=== PATIENT | female | born 1975 | race Caucasian/White ===

== ENCOUNTER → 2023-03-03 | Outpatient (CLI) | payer BC ==
[2023-03-03 15:47] VITALS: BP 114/74; PULSE 100; TEMP 98.3; BMI 62.4
--- NOTE | 2023-03-03 16:20 | P.HPBAR ---
Bariatric H&P - History & Physicial H&P Date: 03/03/23 History & Physicial: Visit/CC: new patient Patient initial contact: Initial weight: Initial weight in pounds: Height: 5 ft 4 in Initial BMI: Last weight: Current weight: 165.108 kg Current weight in pounds: 364.00 Current BMI: 62.4 [place] body weight (based on NIH guidelines): 54.431 kg Excess body weight loss: The patient is a 47 year-old F who presents for Bariatric Assessment. DATE OF SERVICE:03/03/23 REASON FOR CONSULTATION: Initial bariatric evaluation. HISTORY OF PRESENT ILLNESS: Cary Pike is a 47-year-old female who comes with lifelong morbid obesity. She has tried multiple medications for weight loss including mounjaro. Her weight was 349 pound lowest after medical supervised weight loss. Highest weight of 390 pounds. She has done medical supervised weight loss. She reports back pain. She has right hip pain. She has knee pains bilateral. She fidgets. She denies dysphagia. She denies stomach, esophageal or colon cancer. No reports of deep venous thrombosis. Her mother has a blood disorder. No moderate gastroesophageal reflux disease but she is on Ozempic. She still has her gallbladder. She denies food allergies. She is looking into the sleeve gastrectomy. At height of 5 feet 4 inches, her ideal body weight is 144 pounds. Highest weight 390 pounds, body mass index 67.1. She comes in 364 pounds. Her body mass index is 62.5. She is 220 pounds overweight. PAST MEDICAL HISTORY: 1. Morbid obesity due to excess calories 2. Body mass index of 67.1 3. Generalized anxiety disorder 4. Chronic obstructive pulmonary disease due to excess 5. Hypertensive heart disease 6. Depressive disorder 7. Obstructive sleep apnea 8. Motion sickness 9. Osteoarthritis lower back 10. Osteoarthritis right hip 11. Osteoarthritis bilateral knees PAST SURGICAL HISTORY: 1. Section HOME MEDICATIONS: Home Medications Medication Instructions Recorded Confirmed ALPRAZolam [Xanax] 0.25 mg PO BID PRN 03/03/23 03/03/23 Albuterol Inhaler [Ventolin Hfa 1 - 2 puff INHALATION Q6H PRN 03/03/23 03/03/23 Inhaler] Budesonide/Formoterol Fumarate 1 puff INHALATION BID 03/03/23 03/03/23 [Symbicort 160-4.5 Mcg Inhaler] Montelukast [Singulair] 10 mg PO HS 03/03/23 03/03/23 Valsartan/Hydrochlorothiazide 1 each PO DAILY 03/03/23 03/03/23 [Valsartan-Hctz 160-12.5 mg Tab] Venlafaxine HCl [Effexor XR] 75 mg PO HS 03/03/23 03/03/23 ALLERGIES: Allergies Allergy/AdvReac Type Severity Reaction Status Date / Time Penicillins Allergy Unknown Verified 03/03/23 15:37 Childhood SOCIAL HISTORY: Past tobacco use. FAMILY HISTORY: No family history of ulcerative colitis disease or Crohn's disease. Family history of morbid obesity. No lupus in the family. No reports of stomach or esophageal cancer. Mother with blood disorder. REVIEW OF ORGAN SYSTEMS: CONSTITUTIONAL: At height of 5 feet 4 inches, her ideal body weight is 144 pounds. Highest weight 390 pounds, body mass index 67.1. She comes in 364 pounds. Her body mass index is 62.5. She is 220 pounds overweight. HEENT: Denies any active troubles with vision or hearing. ENDOCRINE: Denies diabetes. No hypothyroidism. CARDIOVASCULAR: Denies reports of palpitations or heart attacks or chest pain. Has hypertensive heart disease. RESPIRATORY: Has daytime somnolence. Has asthma. Has chronic obstructive pulmonary disease. GASTROINTESTINAL: Denies any bright red blood per rectum. No diarrhea. No constipation. Has gastroesophageal reflux disease. GENITOURINARY: Denies bladder urgency. No recent blood in urine MUSCULOSKELETAL: Has lower back pain and joint pain. Has osteoarthritis of the knees. NEURO: No headaches. No seizure disorders. PSYCH: Has depression. No suicidal ideation. Has anxiety disorder. RHEUMATOLOGIC: No lupus. No rheumatoid arthritis. HEMATOLOGIC: Denies any abnormal bleeding or bruising. SKIN: No rash. No skin cancer. PHYSICAL EXAM: VITAL SIGNS: Height 5 foot 4 inches, weight 364 pounds. BMI 62.5 Vital Signs Temp 98.3 F 03/03/23 15:36 Pulse 100 03/03/23 15:36 Resp BP 114/74 03/03/23 15:36 Pulse Ox FiO2 GENERAL: Well-developed in no acute distress. HEENT: No scleral icterus. Extraocular movements grossly intact. Hears conversational speech. No nasal drainage. NECK: Supple without lymphadenopathy. CHEST: Nonlabored respirations with equal bilateral excursions. CARDIOVASCULAR: Regular rate and regular rhythm. Distal 2+ pulses. ABDOMEN: Obese, soft, nontender, nondistended. MUSCULOSKELETAL: No clubbing, cyanosis. NEURO: No focal or lateralizing signs. Cranial nerves 2 through 12 grossly within normal limits. PSYCH: Appropriate affect. Alert and oriented to person, place and time. SKIN: Good skin turgor. Well perfused. ASSESSMENT: 1. Morbid obesity due to excess calories 2. Body mass index of 67.1 3. Generalized anxiety disorder 4. Chronic obstructive pulmonary disease due to excess 5. Hypertensive heart disease 6. Depressive disorder 7. Obstructive sleep apnea 8. Motion sickness 9. Osteoarthritis lower back 10. Osteoarthritis right hip 11. Osteoarthritis bilateral knees PLAN: 1. Surgical options including a band, gastric bypass, sleeve gastrectomy were described in detail. 2. The [place] bariatric surgical collaborative data and outcomes calculator were described with surgical options. 3. Recommend a bariatric metabolic panel to evaluate for micro- including macronutrient deficiencies. 4. For history of daytime somnolence, recommend evaluation and treatment for sleep apnea. 5. Dietary surveillance and counseling was reviewed. Increased protein intake over 65 grams daily advised. 6. Will need cardiac risk assessment. 7. Recommend medical risk assessment. 8. Psych assessment per insurance guidelines. 9. Recommend upper endoscopy. 10. Recommend 12-lead EKG. 11. Recommend urine metabolites testing Thank you for this consultation. Past Medical History Past Medical History: Asthma, COPD, Hypertension, Sleep Apnea/CPAP/BIPAP History of Any Multi-Drug Resistant Organisms: None Reported Past Surgical History: Section Past Anesthesia/Blood Transfusion Reactions: No Reported Reaction, Motion Sickness Past Psychological History: Anxiety, Depression Smoking Status: Former smoker Past Alcohol Use History: Occasional Past Drug Use History: None Reported Surgical - Exam Vital Signs Temp Pulse BP 98.3 F 100 114/74 03/03/23 15:36 03/03/23 15:36 03/03/23 15:36 Bariatric Checklist Checklist: Plan: Checklist: EGD: 1. Hiatal hernia: 2. H. Pylori: HgbA1c: Vitamin D: Smoking: Primary care physician referral: Gianna Montenegro NP Psychiatry clearance: Cardiology clearance: Sleep study: Diet journal: VTE risk score: VTE risk level: Rehab needs at discharge:
== END ==
LOC: BARWHC3 15:16
PROVIDERS: ATTEND Surgery Plastic and Reconstructive Surgery
DX: E66.01 Morbid (severe) obesity due to excess calories (principal); F41.1 Generalized anxiety disorder; I11.9 Hypertensive heart disease without heart failure; F32.A Depression, unspecified; G47.33 Obstructive sleep apnea (adult) (pediatric); T75.3XXA Motion sickness, initial encounter; M47.816 Spondylosis without myelopathy or radiculopathy, lumbar region; J44.89 Other specified chronic obstructive pulmonary disease; M16.11 Unilateral primary osteoarthritis, right hip; M17.0 Bilateral primary osteoarthritis of knee; Z68.44 Body mass index [BMI] 60.0-69.9, adult; Z72.0 Tobacco use; Z79.899 Other long term (current) drug therapy; Z88.0 Allergy status to penicillin
CPT/HCPCS: 99212

== ENCOUNTER → 2023-03-11 | Outpatient (CLI) | payer BC ==
[2023-03-11 10:52] LABS: INR 0.9 (<1.2); Prothrombin Time 9.7 sec (10.0-12.5)
[2023-03-11 15:05] LABS: HCT 39.3 % (37.2-46.3); HGB 13.3 g/dL (12.0-15.0); MCH 30.5 pg (27.0-32.0); MCHC 33.8 g/dL (32.0-37.0); MCV 90.1 FL (80.0-97.0); Mean Platelet Volume 10.9 FL (9.5-12.2); NRBC Per 100 WBC 0 X 10*3/uL (0.00-0.01); Platelet Count 334 X 10*3/uL (140-440); RBC 4.36 X 10*6/uL (4.10-5.20); RDW 13.3 % (11.5-14.5); WBC 11.06 X 10*3/uL (4.50-10.00)
[2023-03-11 15:23] LABS: Prealbumin 18.3 mg/dL (18.0-42.0)
[2023-03-11 15:52] LABS: Chol/HDL Ratio 3.01 Ratio; Magnesium 2.3 mg/dL (1.5-2.4)
[2023-03-11 15:53] LABS: ALT 21 U/L (8-44); AST 16 U/L (13-35); Albumin/Globulin Ratio 1.38 Ratio (1.60-3.17); Alkaline Phosphatase 91 U/L (41-126); BUN/Creat Ratio 18.71 Ratio (12.00-20.00); Blood Urea Nitrogen 13.1 mg/dL (9.0-27.0); Calcium 9.6 mg/dL (8.7-10.3); Carbon Dioxide 26.7 mmol/L (21.6-31.8); Chloride 99 mmol/L (96-109); Globulin 2.9 g/dL (1.6-3.3); Glucose 101 mg/dL (70-110); Iron 87 UG/DL (50-170); LDL Cholesterol,Calculated 105.8 mg/dL (0.0-131.0); Phosphorus 3.4 mg/dL (2.4-5.1); Potassium 4.7 mmol/L (3.5-5.5); Sodium 137 mmol/L (135-145); Total Bilirubin 0.4 mg/dL (0.3-1.2); Total Iron Binding Capacity 361 UG/DL (228-460); Total Protein 6.9 g/dL (6.2-8.2)
[2023-03-11 15:54] LABS: Ferritin 54.4 ng/mL (10.0-291.0)
[2023-03-12 12:42] LABS: Zinc, Serum 73 ug/dL (60-130)
[2023-03-13 10:03] LABS: Anabasine Urine <2.0 ng/mL (<2.0)
== END | disposition home or self-care (01) ==
LOC: LABWHC1 09:39
PROVIDERS: ATTEND Surgery Plastic and Reconstructive Surgery
DX: E66.01 Morbid (severe) obesity due to excess calories (principal); E89.1 Postprocedural hypoinsulinemia; D50.8 Other iron deficiency anemias; K91.2 Postsurgical malabsorption, not elsewhere classified; E44.0 Moderate protein-calorie malnutrition; E44.1 Mild protein-calorie malnutrition; E45 Retarded development following protein-calorie malnutrition; E46 Unspecified protein-calorie malnutrition; E55.9 Vitamin D deficiency, unspecified; K74.1 Hepatic sclerosis; N19 Unspecified kidney failure; T56.894A Toxic effect of other metals, undetermined, initial encounter; K50.90 Crohn's disease, unspecified, without complications; I49.49 Other premature depolarization
CPT/HCPCS: 36415; 80053; 80061; 80307; 80323; 82306; 82525; 82607; 82728; 82746; 83036; 83540; 83550; 83735; 83970; 84100; 84134; 84255; 84425; 84443; 84590; 84630; 85027; 85610; 85730; 93005

== ENCOUNTER 2023-04-26 06:11 | Day surgery (SDC) | payer BC ==
[2023-04-22 10:30] VITALS: BMI 63.1
[~2023-04-26 06:11] MED LIST: LIDOCAINE 1% (10MG/ML) FOR IV START INTRADERMA PRN
--- NOTE | 2023-04-26 07:03 | P.GSHP ---
History of Present Illness H&P Date: 04/26/23 CHIEF COMPLAINT: GERD and colon screen HISTORY OF PRESENT ILLNESS: The patient is a 47-year-old female who presents with gastroesophageal reflux disease and need for colon screen. Upper and lower endoscopy were offered for further evaluation and management. PAST MEDICAL HISTORY: Please see list. PAST SURGICAL HISTORY: Please see list. MEDICATIONS: Please see list. ALLERGIES: Please see list. SOCIAL HISTORY: No illicit drug use FAMILY HISTORY: No reports of Crohn disease or ulcerative colitis. REVIEW OF ORGAN SYSTEMS: CONSTITUTIONAL: No reports of fevers or chills. GI: Denies any blood in stools or constipation. PHYSICAL EXAM: VITAL SIGNS: Stable GENERAL: Well-developed pleasant in no acute distress. HEENT: No scleral icterus. Extraocular movements grossly intact. Moist buccal mucosa. NECK: Supple without lymphadenopathy. CHEST: Unlabored respirations. Equal bilateral excursions. CARDIOVASCULAR: Regular rate and rhythm. Distal 2+ pulses. ABDOMEN: Soft, nondistended. MUSCULOSKELETAL: No clubbing, cyanosis, or edema. ASSESSMENT: 1. Gastroesophageal reflux disease 2. Colon screen. PLAN: 1. Recommend proceeding with an upper and lower endoscopy Past Medical History Past Medical History: Asthma, COPD, Hypertension, Sleep Apnea/CPAP/BIPAP History of Any Multi-Drug Resistant Organisms: None Reported Past Surgical History: Section Past Anesthesia/Blood Transfusion Reactions: No Reported Reaction, Motion Sickness Smoking Status: Former smoker - Past Family History Mother Family Medical History: Cancer, Deep Vein Thrombosis (DVT) Medications and Allergies Home Medications Medication Instructions Recorded Confirmed Type ALPRAZolam [Xanax] 0.25 mg PO BID PRN 03/03/23 04/26/23 History Albuterol Inhaler [Ventolin Hfa 1 - 2 puff INHALATION Q6H PRN 03/03/23 04/26/23 History Inhaler] Budesonide/Formoterol Fumarate 1 puff INHALATION BID 03/03/23 04/26/23 History [Symbicort 160-4.5 Mcg Inhaler] Montelukast [Singulair] 10 mg PO HS 03/03/23 04/26/23 History Valsartan/Hydrochlorothiazide 1 each PO DAILY 03/03/23 04/26/23 History [Valsartan-Hctz 160-12.5 mg Tab] Venlafaxine HCl [Effexor XR] 75 mg PO HS 03/03/23 04/26/23 History Fluticasone Nasal [place] [Flonase 2 spray EA NOSTRIL DAILY PRN 04/22/23 04/26/23 History Nasal [place]] Ibuprofen [Motrin] 800 mg PO Q8H PRN 04/22/23 04/26/23 History buPROPion HCL [buPROPion HCL SR] 150 mg PO BID 04/22/23 04/26/23 History Allergies Allergy/AdvReac Type Severity Reaction Status Date / Time Penicillins Allergy Unknown Verified 04/26/23 06:53 Childhood Surgical - Exam Vital Signs Temp Pulse Resp BP Pulse Ox 97.6 F 55 L 18 142/63 95 04/26/23 06:57 04/26/23 06:57 04/26/23 06:57 04/26/23 06:57 04/26/23 06:57
[2023-04-26 07:05] VITALS: TEMP 97.6
[2023-04-26] MEDS: LACTATED RINGERS 1,000 ML IV SCH (07:13)
[2023-04-26] MEDS ORDERED: PROPOFOL 10 MG/ML 20 ML VIAL IV ONE (07:14)
[2023-04-26] MEDS ORDERED: GLYCOPYRROLATE 0.2 MG/ML 2 ML VIAL ONE (07:14)
[2023-04-26] MEDS ORDERED: KETAMINE HCL IN 0.9 % NACL 50 MG/5 ML SYRINGE ONE (07:14)
[2023-04-26] MEDS ORDERED: LIDOCAINE 1% INJ 10MG/ML (20 ML MDV) ONE (07:14)
[2023-04-26] MEDS: SODIUM CHLORIDE 0.9% 1,000 ML IV ONE (07:18)
--- NOTE | 2023-04-26 07:30 | P.PCN ---
Date of Procedure: 04/26/23 Description of Procedure: PREOPERATIVE DIAGNOSIS: Gastroesophageal reflux disease. Morbid obesity. POSTOPERATIVE DIAGNOSIS: Gastroesophageal reflux disease with erosive esophagitis Esophageal ulcer Morbid obesity. Gastritis. Diaphragmatic hiatal hernia OPERATION: Esophagogastroduodenoscopy with biopsies along esophagus, antrum and duodenum SURGEON: Jeniffer Butts MD ANESTHESIA: MAC. INDICATIONS: The patient is a 47-year-old female who presents with reflux disease. Benefits and risks of the procedure were described. Informed consent was obtained. DESCRIPTION: The patient was brought into the endoscopy suite and laid in the left lateral decubitus position. An Olympus gastroscope was passed along the posterior oropharynx down to the distal esophagus where the squamocolumnar junction was encountered at 38 cm from the incisors. The stomach was entered and no bile reflux was found. Additional findings are listed below. Biopsies with cold forceps were obtained of the antrum. The first through third portion of the duodenum was examined. Retroflexion of the scope confirmed Hill grade 2 lower esophageal valve. The squamocolumnar junction demonstrated LA grade B erosive esophagitis. The stomach was desufflated. The patient tolerated the procedure well. FINDINGS: Squamocolumnar junction 38 cm from the incisors. Diaphragmatic hiatus at 40 cm. Hiatal hernia, 2 cm Hill grade 2 lower esophageal valve. LA grade B erosive esophagitis with esophageal ulcer. Biopsies obtained Biopsies obtained of the duodenum. Chronic gastritis with biopsies obtained. RECOMMENDATIONS: Upper endoscopy as needed. Omeprazole 40 mg daily
--- NOTE | 2023-04-26 07:45 | P.PCN ---
Date of Procedure: 04/26/23 Description of Procedure: PREOPERATIVE DIAGNOSIS: Colonoscopy screening. POSTOPERATIVE DIAGNOSIS: Colonoscopy screening. Diverticulosis, scattered. OPERATION: Colonoscopy to the cecum, ileocecal valve and appendiceal orifice. SURGEON: Jeniffer Butts MD. ANESTHESIA: MAC. INDICATIONS: The patient is a 47-year-old female who presents for colonoscopy screening. Benefits and risks were described and informed consent was obtained. DESCRIPTION OF PROCEDURE: The patient had undergone Suprep. The patient had been brought into the operating room and laid in the left lateral decubitus position. After adequate intravenous sedation, the rectum was examined with 2% lidocaine jelly. No external hemorrhoids were encountered. The rectal tone was within normal limits. No lesions were palpated in the rectal vault. An Olympus colonoscope was advanced until the cecum, ileocecal valve and appendiceal orifice were clearly viewed. The prep was excellent. Scattered diverticulosis was encountered. No colonic polyps were found. No evidence of focal colitis was found. Retroflexion of the scope demonstrated grade 1 internal hemorrhoids without active bleeding or inflammation. The colon was desufflated. The patient had tolerated the procedure well. Withdrawal time was over 6 minutes. FINDINGS: Aronchick preparation quality scale 1 (1-5) Internal hemorrhoids, grade 1 No external prolapsed hemorrhoids. No arteriovenous malformations. No adenomatous polyps. No focal colitis. Diverticulosis, scattered, mild RECOMMENDATIONS: Lower endoscopy in 10 years, 2033 Plan - Discharge Summary Discharge Rx Participant: No New Discharge Prescriptions: New Omeprazole [PriLOSEC] 40 mg PO DAILY #30 cap Continue Albuterol Inhaler [Ventolin Hfa Inhaler] 1 - 2 puff INHALATION Q6H PRN PRN Reason: Shortness Of Breath Montelukast [Singulair] 10 mg PO HS buPROPion HCL [buPROPion HCL SR] 150 mg PO BID Fluticasone Nasal [place] [Flonase Nasal [place]] 2 spray EA NOSTRIL DAILY PRN PRN Reason: ALLERGIES ALPRAZolam [Xanax] 0.25 mg PO BID PRN PRN Reason: Anxiety Venlafaxine HCl [Effexor XR] 75 mg PO HS Valsartan/Hydrochlorothiazide [Valsartan-Hctz 160-12.5 mg Tab] 1 each PO DAILY Budesonide/Formoterol Fumarate [Symbicort 160-4.5 Mcg Inhaler] 1 puff INHALATION BID Ibuprofen [Motrin] 800 mg PO Q8H PRN PRN Reason: Pain Discharge Medication List ALPRAZolam [Xanax] 0.25 mg PO BID PRN 03/03/23 [History] Albuterol Inhaler [Ventolin Hfa Inhaler] 1 - 2 puff INHALATION Q6H PRN 03/03/23 [History] Budesonide/Formoterol Fumarate [Symbicort 160-4.5 Mcg Inhaler] 1 puff INHALATION BID 03/03/23 [History] Montelukast [Singulair] 10 mg PO HS 03/03/23 [History] Valsartan/Hydrochlorothiazide [Valsartan-Hctz 160-12.5 mg Tab] 1 each PO DAILY 03/03/23 [History] Venlafaxine HCl [Effexor XR] 75 mg PO HS 03/03/23 [History] Fluticasone Nasal [place] [Flonase Nasal [place]] 2 spray EA NOSTRIL DAILY PRN 04/22/23 [History] Ibuprofen [Motrin] 800 mg PO Q8H PRN 04/22/23 [History] buPROPion HCL [buPROPion HCL SR] 150 mg PO BID 04/22/23 [History] Omeprazole [PriLOSEC] 40 mg PO DAILY #30 cap 04/26/23 [Rx] [facility]ment[facility]Ref[facility] [place] [place] [facility] [place] [facility] Patient Instructions/Handouts: *Surgery [facility] - (Anesthesia) Discharge Instructions Outpatient Surgery, Colonoscopy (DC), Upper Endoscopy (DC), Diverticulosis Diet (GEN), Diverticulosis (DC), Hiatal Hernia (DC) Discharge Disposition: HOME SELF-CARE
[2023-04-26 08:33] VITALS: BP 106/62; PULSE 51; RESP 18
== END 2023-04-26 08:17 | disposition home or self-care (01) ==
LOC: ORWHC2ENDO 06:11
PROVIDERS: ATTEND Surgery Plastic and Reconstructive Surgery
DX: Z12.11 Encounter for screening for malignant neoplasm of colon (principal); K22.10 Ulcer of esophagus without bleeding; K29.50 Unspecified chronic gastritis without bleeding; K57.30 Diverticulosis of large intestine without perforation or abscess without bleeding; K64.0 First degree hemorrhoids; K21.00 Gastro-esophageal reflux disease with esophagitis, without bleeding; E66.01 Morbid (severe) obesity due to excess calories; K44.9 Diaphragmatic hernia without obstruction or gangrene; J44.9 Chronic obstructive pulmonary disease, unspecified; I10 Essential (primary) hypertension; F41.9 Anxiety disorder, unspecified; G47.33 Obstructive sleep apnea (adult) (pediatric); F32.A Depression, unspecified; Z98.890 Other specified postprocedural states; Z87.891 Personal history of nicotine dependence; Z79.51 Long term (current) use of inhaled steroids; Z79.899 Other long term (current) drug therapy; Z80.9 Family history of malignant neoplasm, unspecified; Z88.0 Allergy status to penicillin; Z68.44 Body mass index [BMI] 60.0-69.9, adult
CPT/HCPCS: 45378; 81025; 88305; 43239; J2001; J2704

== ENCOUNTER → 2023-05-03 | Outpatient (CLI) | payer BC ==
[2023-05-20 11:54] VITALS: BMI 65.8
== END ==
LOC: BARWHC3 12:48
PROVIDERS: ATTEND Surgery Plastic and Reconstructive Surgery
DX: E66.01 Morbid (severe) obesity due to excess calories (principal); Z71.3 Dietary counseling and surveillance; Z68.44 Body mass index [BMI] 60.0-69.9, adult; Z88.0 Allergy status to penicillin
CPT/HCPCS: 97804; 99211

== ENCOUNTER → 2023-05-12 | Outpatient (CLI) | payer BC ==
[2023-05-12 14:51] VITALS: BP 133/82; PULSE 114; TEMP 97.2; BMI 66.0
--- NOTE | 2023-05-12 15:46 | P.BASOAP ---
Subjective Progress Note Date: 05/12/23 WEnt over consent for sleeve. 20 pound for 5% for 365 target. For weight loss. Objective - Vital Signs Vital signs: Vital Signs Temp 97.2 F L 05/12/23 14:48 Pulse 114 H 05/12/23 14:48 Resp BP 133/82 05/12/23 14:48 Pulse Ox FiO2 Intake & Output 05/11/23 05/12/23 05/12/23 18:59 06:59 18:59 Weight 174.633 kg Assessment/Plan Plan: Date: 05/12/23 Initial Weight: Initial BMI: Current Weight: 174.633 kg Current BMI: 66.0 Type of Surgery: Total Volume in Band: Previous Volume: Volume Removed: Volume Added: Band Size:
== END ==
LOC: BARWHC3 14:24
PROVIDERS: ATTEND Surgery Plastic and Reconstructive Surgery
DX: Z53.9 Procedure and treatment not carried out, unspecified reason (principal)
CPT/HCPCS: 99211

== ENCOUNTER → 2023-06-23 | Outpatient (CLI) | payer BC ==
[2023-06-23 15:57] LABS: Basophils # (A) 0.07 X 10*3/uL (0.00-0.10); Basophils % (A) 0.7 %; Eosinophils # (A) 0.33 X 10*3/uL (0.04-0.35); Eosinophils % (A) 3.3 %; HCT 40.2 % (37.2-46.3); HGB 13.4 g/dL (12.0-15.0); Lymphocytes # (A) 2.55 X 10*3/uL (0.90-5.00); Lymphocytes % (A) 25.6 %; MCHC 33.3 g/dL (32.0-37.0); MCV 89.9 FL (80.0-97.0); Mean Platelet Volume 10.1 FL (9.5-12.2); Monocytes # (A) 0.62 X 10*3/uL (0.20-1.00); Monocytes % (A) 6.2 %; NRBC Per 100 WBC 0 X 10*3/uL (0.00-0.01); Neutrophils # (A) 6.38 X 10*3/uL (1.80-7.70); Platelet Count 387 X 10*3/uL (140-440); RBC 4.47 X 10*6/uL (4.10-5.20); RDW 13.1 % (11.5-14.5); WBC 9.97 X 10*3/uL (4.50-10.00)
[2023-06-23 16:08] LABS: ALT 35 U/L (8-44); AST 26 U/L (13-35); Albumin 4.3 g/dL (3.8-4.9); Albumin/Globulin Ratio 1.39 Ratio (1.60-3.17); Alkaline Phosphatase 76 U/L (41-126); BUN/Creat Ratio 19.88 Ratio (12.00-20.00); Blood Urea Nitrogen 15.9 mg/dL (9.0-27.0); Calcium 9.6 mg/dL (8.7-10.3); Carbon Dioxide 23.7 mmol/L (21.6-31.8); Chloride 100 mmol/L (96-109); Globulin 3.1 g/dL (1.6-3.3); Glucose 82 mg/dL (70-110); Potassium 3.8 mmol/L (3.5-5.5); Sodium 136 mmol/L (135-145); Total Bilirubin 0.3 mg/dL (0.3-1.2); Total Protein 7.4 g/dL (6.2-8.2)
== END | disposition home or self-care (01) ==
LOC: LABWHC1 12:05
PROVIDERS: ATTEND Surgery Plastic and Reconstructive Surgery
DX: Z01.812 Encounter for preprocedural laboratory examination (principal)
CPT/HCPCS: 36415; 80053; 85025; 86850; 86900; 86901

== ENCOUNTER 2023-06-28 14:13 | Inpatient (IN) | payer BC ==
--- NOTE | 2023-06-28 08:43 | P.GSHP ---
History of Present Illness H&P Date: 06/28/23 CHIEF COMPLAINT: Morbid obesity HISTORY OF PRESENT ILLNESS: Cary Pike is a 48-year-old female who comes with lifelong morbid obesity. She has tried multiple medications for weight loss including mounjaro. Her weight was 349 pound lowest after medical supervised weight loss. Highest weight of 390 pounds. She has done medical supervised weight loss. She reports back pain. She has right hip pain. She has knee pains bilateral. She fidgets. She denies dysphagia. She denies stomach, esophageal or colon cancer. No reports of deep venous thrombosis. Her mother has a blood disorder. No moderate gastroesophageal reflux disease but she is on Ozempic. She still has her gallbladder. She denies food allergies. She is looking into the sleeve gastrectomy. She has completed medical supervised weight loss. She has completed bariatric metabolic profile. At height of 5 feet 4 inches, her ideal body weight is 144 pounds. Highest weight 390 pounds, body mass index 67.1. She comes in 364 pounds. Her body mass index is 62.5. She is 220 pounds overweight. PAST MEDICAL HISTORY: 1. Morbid obesity due to excess calories 2. Body mass index of 67.1 3. Generalized anxiety disorder 4. Chronic obstructive pulmonary disease due to excess 5. Hypertensive heart disease 6. Depressive disorder 7. Obstructive sleep apnea 8. Motion sickness 9. Osteoarthritis lower back 10. Osteoarthritis right hip 11. Osteoarthritis bilateral knees PAST SURGICAL HISTORY: 1. Section HOME MEDICATIONS: ALLERGIES: SOCIAL HISTORY: Past tobacco use. FAMILY HISTORY: No family history of ulcerative colitis disease or Crohn's disease. Family history of morbid obesity. No lupus in the family. No reports of stomach or esophageal cancer. Mother with blood disorder. REVIEW OF ORGAN SYSTEMS: CONSTITUTIONAL: At height of 5 feet 4 inches, her ideal body weight is 144 pounds. Highest weight 390 pounds, body mass index 67.1. She comes in 364 pounds. Her body mass index is 62.5. She is 220 pounds overweight. HEENT: Denies any active troubles with vision or hearing. ENDOCRINE: Denies diabetes. No hypothyroidism. CARDIOVASCULAR: Denies reports of palpitations or heart attacks or chest pain. Has hypertensive heart disease. RESPIRATORY: Has daytime somnolence. Has asthma. Has chronic obstructive pulmonary disease. GASTROINTESTINAL: Denies any bright red blood per rectum. No diarrhea. No constipation. Has gastroesophageal reflux disease. GENITOURINARY: Denies bladder urgency. No recent blood in urine MUSCULOSKELETAL: Has lower back pain and joint pain. Has osteoarthritis of the knees. NEURO: No headaches. No seizure disorders. PSYCH: Has depression. No suicidal ideation. Has anxiety disorder. RHEUMATOLOGIC: No lupus. No rheumatoid arthritis. HEMATOLOGIC: Denies any abnormal bleeding or bruising. SKIN: No rash. No skin cancer. PHYSICAL EXAM: VITAL SIGNS: Height 5 foot 4 inches, weight pounds. BMI 63.5 GENERAL: Well-developed in no acute distress. HEENT: No scleral icterus. Extraocular movements grossly intact. Hears conversational speech. No nasal drainage. NECK: Supple without lymphadenopathy. CHEST: Nonlabored respirations with equal bilateral excursions. CARDIOVASCULAR: Regular rate and regular rhythm. Distal 2+ pulses. ABDOMEN: Obese, soft, nontender, nondistended. MUSCULOSKELETAL: No clubbing, cyanosis. NEURO: No focal or lateralizing signs. Cranial nerves 2 through 12 grossly within normal limits. PSYCH: Appropriate affect. Alert and oriented to person, place and time. SKIN: Good skin turgor. Well perfused. ASSESSMENT: 1. Morbid obesity due to excess calories 2. Body mass index of 67.1 3. Generalized anxiety disorder 4. Chronic obstructive pulmonary disease due to excess 5. Hypertensive heart disease 6. Depressive disorder 7. Obstructive sleep apnea 8. Motion sickness 9. Osteoarthritis lower back 10. Osteoarthritis right hip 11. Osteoarthritis bilateral knees PLAN: 1. Bariatric options between a sleeve, band and a Aline-en-Y gastric bypass were reviewed in detail. The patient elected for a sleeve gastrectomy. Robotic assisted approach described. 2. The [place] [facility] Collaborative Data was also reviewed with benefits and risks as described. 3. An 8 page second-generation bariatric consent form was reviewed in detail including potential of bleeding, infection, leaks, adequate weight loss, nutritional deficiencies which the patient demonstrated understanding of the risks. 4. A 2 week high-protein low caloric 800 kcal diet described to address hepatomegaly. 5. Preoperative labs including complete metabolic panel and CBC with type and screen recommended. 6. DVT prophylaxis per [place] bariatric surgery collaborative. 7. Antibiotic prophylaxis. 8. Inpatient hospitalization anticipated for more than 2 nights. 9. All questions and concerns were addressed with the patient. 10. The patient is at elevated risk for perioperative complications with sleep apnea and hypertensive heart disease. 11. Overall, patient has expressed understanding of bariatric care including postoperative diet and commitment of lifestyle. Patient should benefit from surgical intervention for correction of morbid obesity. 12. She is elevated risk due to pre-existing comorbid conditions 13. Anticipated 5% weight loss from 385 pounds with goal of 365 pounds on day of procedure. Past Medical History Past Medical History: Asthma, COPD, GERD/Reflux, Hypertension, Sleep Apnea/CPAP/BIPAP Additional Past Medical History / Comment(s): knees pain, does not wear cpap History of Any Multi-Drug Resistant Organisms: None Reported Past Surgical History: Section Additional Past Surgical History / Comment(s): colonoscopy. egd Past Anesthesia/Blood Transfusion Reactions: No Reported Reaction, Motion Sickness Smoking Status: Former smoker - Past Family History Mother Family Medical History: Cancer, Deep Vein Thrombosis (DVT) Father Family Medical History: Cancer Additional Family Medical History / Comment(s): DDD, Leukemia Medications and Allergies Home Medications Medication Instructions Recorded Confirmed Type ALPRAZolam [Xanax] 0.5 mg PO BID PRN 03/03/23 06/23/23 History Albuterol Inhaler [Ventolin Hfa 1 - 2 puff INHALATION Q6H PRN 03/03/23 06/23/23 History Inhaler] Montelukast [Singulair] 10 mg PO HS 03/03/23 06/23/23 History Valsartan/Hydrochlorothiazide 1 each PO DAILY 03/03/23 06/23/23 History [Valsartan-Hctz 160-12.5 mg Tab] Venlafaxine HCl [Effexor XR] 75 mg PO HS 03/03/23 06/23/23 History Fluticasone Nasal [place] [Flonase 2 spray EA NOSTRIL DAILY PRN 04/22/23 06/23/23 History Nasal [place]] Ibuprofen [Motrin] 800 mg PO Q8H PRN 04/22/23 06/23/23 History buPROPion HCL [buPROPion HCL SR] 150 mg PO BID 04/22/23 06/23/23 History Omeprazole [PriLOSEC] 40 mg PO DAILY #30 cap 04/26/23 06/23/23 Rx Fluticasone/Vilanterol [Breo 1 puff IH DAILY 06/23/23 06/23/23 History Ellipta 100-25 Mcg Inhalr] Metoprolol Succinate (ER) [Toprol 25 mg PO DAILY 06/23/23 06/23/23 History XL] Allergies Allergy/AdvReac Type Severity Reaction Status Date / Time Penicillins Allergy Unknown Verified 06/23/23 13:45 Childhood
[~2023-06-28 14:13] MED LIST changes: +ONDANSETRON 4 MG/2 ML VIAL IVP PRN
[2023-06-28] MEDS: LACTATED RINGERS 1,000 ML IV SCH (14:29)
[2023-06-28] MEDS: DEXAMETHASONE SOD PHOSPHATE 4 MG/ML 1 ML VIAL IV ONE (14:57)
[2023-06-28] MEDS: ONDANSETRON 4 MG/2 ML VIAL IVP ONE (14:57)
[2023-06-28] MEDS: SCOPOLAMINE 1 MG/72 HR PATCH TRANSDERM STA (14:57)
[2023-06-28] MEDS: ALVIMOPAN 12 MG CAPSULE PO PRN (14:57)
[2023-06-28] MEDS: ACETAMINOPHEN TAB 500 MG TAB PO PRN (14:57)
[2023-06-28] MEDS: ENOXAPARIN 40 MG/0.4 ML SYRINGE SQ PRN (14:58)
[2023-06-28] MEDS: PANTOPRAZOLE 40 MG/10 ML VIAL IVP PRN (15:09)
[2023-06-28] MEDS: CHLORHEXIDINE GLUCONATE 15 ML CUP MUCOUS MEM PRN (15:09)
[2023-06-28] MEDS ORDERED: ePHEDrine 50 MG/ML 1 ML VIAL ONE (17:26)
[2023-06-28] MEDS ORDERED: MIDAZOLAM 2 MG/2 ML VIAL ONE (17:26)
[2023-06-28] MEDS ORDERED: SUCCINYLCHOLINE CHLORIDE 200 MG/10 ML VIAL IV ONE (17:26)
[2023-06-28] MEDS ORDERED: LIDOCAINE 1% INJ 10MG/ML (20 ML MDV) ONE (17:26)
[2023-06-28] MEDS ORDERED: GLYCOPYRROLATE 0.2 MG/ML 2 ML VIAL ONE (17:26)
[2023-06-28] MEDS ORDERED: ROCURONIUM 10 MG/ML (5 ML VIAL) IV ONE (17:26)
[2023-06-28] MEDS ORDERED: fentaNYL (PF) 50 MCG/ML 2 ML AMP ONE (17:26)
[2023-06-28] MEDS ORDERED: NEOSTIGMINE 1 MG/ML 10 ML VIAL ONE (17:26)
[2023-06-28] MEDS ORDERED: PHENYLEPHRINE 10 MG/ML VIAL ONE (17:26)
[2023-06-28] MEDS ORDERED: PROPOFOL 10 MG/ML 20 ML VIAL IV ONE (17:26)
[2023-06-28] MEDS: ceFAZolin 3 GM in SODIUM CHLORIDE 0.9% 100 ML IVPB PRN (17:45)
[2023-06-28] MEDS: LIDOCAINE 1%-EPI 1:100,000 20 ML VIAL SQ ONE (18:03)
[2023-06-28] MEDS: LACTATED RINGERS 1,000 ML IV ONE (18:43)
[2023-06-28] MEDS: HYDROmorphone 0.5 MG/0.5 ML SYRINGE IVP PRN (19:35)
[2023-06-28] MEDS ORDERED: NALOXONE 0.4 MG/ML 1 ML VIAL IV PRN (19:58)
[2023-06-28] MEDS ORDERED: diphenhydrAMINE 50 MG/ML 1 ML VIAL IVP PRN (19:58)
[2023-06-28] MEDS ORDERED: ALPRAZolam 0.5 MG TAB PO PRN (20:06)
[2023-06-28] MEDS ORDERED: FLUTICASONE 50MCG/SPRAY NASAL 16GM EA NOSTRIL PRN (20:06)
[2023-06-28] MEDS: PANTOPRAZOLE 40 MG/10 ML VIAL IV SCH (21:18)
[2023-06-28] MEDS: DEXAMETHASONE SOD PHOSPHATE 10 MG/ML 1 ML VIAL IVP ONE (21:18)
[2023-06-28] MEDS: SIMETHICONE 80 MG CHEWABLE PO SCH (21:19)
[2023-06-28] MEDS: 0.9% NACL WITH KCL 20 MEQ/L 1,000 ML IV SCH (21:26)
[2023-06-28] MEDS: droPERidol 5 MG/2 ML VIAL IVP ONE (21:33)
--- NOTE | 2023-06-28 21:35 | P.OP ---
Date of Procedure: 06/28/23 Description of Procedure: SURGEON: JAGDISH WAGNER MD PREOPERATIVE DIAGNOSES: 1. Morbid obesity due to excess calories 2. Body mass index of 67.1 3. Generalized anxiety disorder 4. Chronic obstructive pulmonary disease due to excess 5. Hypertensive heart disease 6. Depressive disorder 7. Obstructive sleep apnea 8. Motion sickness 9. Osteoarthritis lower back 10. Osteoarthritis right hip 11. Osteoarthritis bilateral knees POSTOPERATIVE DIAGNOSES: 1. Morbid obesity due to excess calories 2. Body mass index of 67.1 3. Generalized anxiety disorder 4. Chronic obstructive pulmonary disease due to excess 5. Hypertensive heart disease 6. Depressive disorder 7. Obstructive sleep apnea 8. Motion sickness 9. Osteoarthritis lower back 10. Osteoarthritis right hip 11. Osteoarthritis bilateral knees OPERATION: 1. Robotic assisted daVinci Xi laparoscopic sleeve gastrectomy with 40-Cymro bougie, multiport. 2. Intraoperative esophagogastroduodenoscopy. ANESTHESIA: Gen. local anesthetic ESTIMATED BLOOD LOSS: 5 mL SPECIMENS REMOVED: Sleeve gastrectomy COMPLICATIONS: None. FINDINGS: 1. Negative intraoperative esophagogastrojejunoscopy leak test. 2. Mild hepatomegaly and no large hiatus hernia. 3. Total of 5 staplers used including 2 - 60 mm green, 3 - 60 mm blue robot loads used to create the gastric sleeve. 4. Sleeve gastrectomy, 29 x 6 cm INDICATIONS: Cary Pike is a 48-year-old female who comes with lifelong morbid obesity. She is looking into the sleeve gastrectomy. She has completed medical supervised weight loss. She has completed bariatric metabolic profile. At height of 5 feet 4 inches, her ideal body weight is 144 pounds. Highest weight 390 pounds, body mass index 67.1. She comes in 364 pounds. Her body mass index is 62.5. She is 220 pounds overweight. All surgical options for morbid obesity had been described using the [place] bariatric surgery collaborative comorbidity resolution including complication risk score. A second-generation bariatric consent form was described in detail including the possibility of protein malnutrition, leaks, gastric stricture, venous thrombosis, gastroesophageal reflux disease, need for further surgery for which she demonstrated understanding. Benefits and risks of the procedure were described at length. Informed consent was obtained. DESCRIPTION: The patient was brought into the operating room theater. Preoperatively she had received Lovenox subcutaneously for DVT prophylaxis. Additionally she had Peridex oral solution as an oral decontaminant. After general induction, the abdomen was prepped and draped in standard sterile fashion. An Ioban draping was placed along the abdomen. A robotic da Jaylyn Xi system was prepped and primed. At 15 cm from the xiphoid, proposed port sites were marked with indelible marker along the anterior axillary line bilaterally, mid axillary line bilaterally with each ports were marked 10 to 15 cm from each other. The robotic stapler port was marked for the right midclavicular line. A 5 mm 0 degrees laparoscopic trocar entry was performed along the left upper quadrant. The abdomen was insufflated to 15 mmHg pressure was tolerated well. Diagnostic laparoscopy demonstrated no injury to bowel, viscera, or mesentery. No evidence of large hiatus hernia was identified. The liver edge was slightly thickened due to mild hepatomegaly despite 2-week protein diet. A 8 mm port was placed along the left upper abdominal wall after exchanging the 5 mm port. A separate 8 mm port was placed along the left lateral abdominal wall. Please note that the ports were placed at least 20 cm away from the target anatomy. Care was taken to check each robotic arms were safely away from collision with the bed or the patient. At the epigastrium, a medium sized Shannan liver retractor was placed under direct visualization with the [employer] Metallurgist placed under the right shoulder of the patient. Next, 12-mm robot stapler port was placed along the right upper quadrant. The camera 8-mm port was maintained along the epigastrium. The patient was repositioned in reverse Trendelenburg position at 25-degrees after lowering the bed. The robot was docked along the left side of the patient. Using a grasper for arm 4, a vessel sealer for arm 3, including grasper for arm 1, the robotic system was docked and primed as described. Instruments were interchanged by the data control assistant for stapler loads. The camera was placed at 30- degrees down. I had sat at the console. The pylorus was identified and 6 cm proximally along the greater curvature of the stomach, the short gastrics were mobilized upwards to the angle of His using a vessel sealer. Hemostasis was excellent during this portion of the procedure. Next, the upper pole of the stomach was adherent to the left unruly, which was gently dissected free using atraumatic grasper. I went to the head of the bed and placed 40-Cymro blunt bougie into the stomach. The bougie was readjusted by the nurse bull wheel worker. Robotic stapler green 60 mm x 2, and blue 60 mm loads x 3 were used to create the sleeve. Initial firing was across the antrum of the stomach towards the angle of His. The staple line was linear without corkscrewing. The space from the angularis incisura of the sleeve was approximately 4 cm. I then went to the head of the bed to perform the intraoperative esophagogastroduodenoscopy leak test. The bougie was withdrawn. The upper pole of the stomach was bathed using normal saline solution. The scope was withdrawn with careful inspection along the staple line for which no leaks were found along the entire length. Additionally,the sleeve was completely hemostatic without any encroachment along the angularis incisura. Its topology was a soft "J". No stricture was encountered upon placement of the scope. The GI tract was desufflated. The patient tolerated this portion of the procedure well. The scope was completely withdrawn. The robot was undocked. I then rescrubbed into case, whereby the irrigation fluid was aspirated from the abdominal cavity. Tisseel fibrin sealant was placed along the entire staple length. Once dried the Shannan liver retractor was removed. Attention was now brought to removal of the specimen. The distal end of the sl eeve gastrectomy specimen was brought out through the 12 mm port at the left upper quadrant. The specimen was gently removed en total. No contamination had occurred during this process. All instruments and pneumoperitoneum including irrigation fluid was removed from the abdominal cavity. The 12 mm port site was closed using 0-Vicryl and Jake Meeks and irrigated with diluted hydrogen peroxide. The final incisions were closed using subcuticular interrupted suture of 4-0 Monocryl. Exofin was applied to the skin once the skin had been cleansed. OptiFoam dressing was placed along the stomach extraction site. The sleeve specimen was measured and checked also for leaks which none were found. At the end of the procedure, needle, sponge, and instrument count was verified correct by the rn surgical pcu. The patient was taken to the postanesthesia care unit in stable condition. The patient had tolerated the procedure well. Intraoperative films and findings were reviewed with the patient's family.
[2023-06-28] MEDS: SODIUM CHLORIDE 0.9% 2,000 ML IV ONE (21:38)
[2023-06-28] MEDS: ALBUTEROL NEBULIZED 2.5 MG/3 ML INHALATION SCH (21:50)
[2023-06-28] MEDS: buPROPion SR 150 MG TABLET.ER PO SCH (21:56)
[2023-06-28] MEDS: MONTELUKAST 10 MG TAB PO SCH (21:57)
[2023-06-28] MEDS: VENLAFAXINE HCL ER 75 MG CAP PO SCH (21:57)
[2023-06-28] MEDS: HYDROmorphone 1 MG/ML 1 ML SYRINGE IVP PRN (22:29)
[2023-06-28] MEDS: ACETAMINOPHEN IV (For NPO) 1,000 MG in EMPTY BAG 1 BAG IVPB SCH (23:30)
[2023-06-28] MEDS: HYOSCYAMINE ORAL DROPS 1.875 MG/15 ML BOTTLE PO SCH (23:31)
[2023-06-28] MEDS: ONDANSETRON 4 MG/2 ML VIAL IVP SCH (23:32)
[2023-06-28] MEDS: DEXAMETHASONE SOD PHOSPHATE 4 MG/ML 1 ML VIAL IVP SCH (23:32)
[2023-06-29] MEDS: ceFAZolin 3 GM in SODIUM CHLORIDE 0.9% 100 ML IVPB SCH (01:17)
[2023-06-29] MEDS: ENOXAPARIN 40 MG/0.4 ML SYRINGE SQ SCH (08:29)
[2023-06-29] MEDS: hydroCHLOROthiazide 12.5 MG CAP PO SCH (08:30)
[2023-06-29] MEDS: VALSARTAN 160 MG TAB PO SCH (08:30)
[2023-06-29] MEDS: METOPROLOL SUCCINATE (ER) 25 MG TAB.ER.24H PO SCH (08:30)
[2023-06-29] MEDS: SYMBICORT 80-4.5 MCG INHALER INHALATION SCH (08:45)
[2023-06-29 08:49] LABS: Basophils # (A) 0.02 X 10*3/uL (0.00-0.10); Basophils % (A) 0.2 %; Eosinophils # (A) 0 X 10*3/uL (0.04-0.35); Eosinophils % (A) 0 %; HCT 41.3 % (37.2-46.3); HGB 13.5 g/dL (12.0-15.0); Lymphocytes # (A) 1.55 X 10*3/uL (0.90-5.00); Lymphocytes % (A) 11.9 %; MCH 30.1 pg (27.0-32.0); MCHC 32.7 g/dL (32.0-37.0); MCV 92.2 FL (80.0-97.0); Mean Platelet Volume 10.8 FL (9.5-12.2); Monocytes # (A) 0.13 X 10*3/uL (0.20-1.00); NRBC Per 100 WBC 0 X 10*3/uL (0.00-0.01); Neutrophils % (A) 86.3 %; Platelet Count 406 X 10*3/uL (140-440); RBC 4.48 X 10*6/uL (4.10-5.20); RDW 13.1 % (11.5-14.5); WBC 13.08 X 10*3/uL (4.50-10.00)
[2023-06-29 08:57] LABS: Blood Urea Nitrogen 17.9 mg/dL (9.0-27.0); Calcium 8.6 mg/dL (8.7-10.3); Carbon Dioxide 19.2 mmol/L (21.6-31.8); Chloride 105 mmol/L (96-109); Magnesium 2.1 mg/dL (1.5-2.4); Phosphorus 3.7 mg/dL (2.4-5.1); Potassium 4.7 mmol/L (3.5-5.5); Sodium 138 mmol/L (135-145)
[2023-06-29] MEDS: 0.9% NACL WITH KCL 20 MEQ/L 1,000 ML IV SCH (09:24)
[2023-06-29 11:45] VITALS: BMI 60.4
--- NOTE | 2023-06-29 13:21 | FL ---
SINGLE CONTRAST UPPER GI EXAMINATION: CLINICAL HISTORY: 48-year-old female postop bariatric surgery, sleeve gastrectomy yesterday. TECHNIQUE: Single contrast exam performed with 35 ml Isovue-370 contrast. FL TIME- 1.45 SEC DAP- 835.48 mGycm2 Total images: 18. FINDINGS: The patient swallowed oral contrast without difficulty or delay. Esophageal peristalsis and motility are within normal limits. Contrast promptly passes from the esophagus into the proximal stomach. The re is an initial delay in regression of contrast followed by trickle flow and then eventually with a more uniform stream of contrast along the sleeve gastrectomy. No extravasation of contrast to suggest leak. No postoperative free air is seen. IMPRESSION: Initial obstruction at the level of the sleeve gastrectomy which gradually improves and resolves duri ng the course of the exam. Mild uniform narrowing remains. No evidence of leak or postsurgical free a ir.
--- NOTE | 2023-06-29 14:12 | P.PN ---
Subjective Progress Note Date: 06/29/23 CHIEF COMPLAINT: Morbid obesity HISTORY OF PRESENT ILLNESS: Postop day #1 status post sleeve gastrectomy. Patient does report abdominal pain. Denies any flatus. Denies nausea. She is still requiring the IV pain medication. Her oral intake with the liquids is poor. She does report a small amount of dysphagia. She denies any difficulty urinating. She has been up and ambulating in the hallway. Afebrile. WBC 13.08 Hgb 13.5 platelets 406 sodium 130 potassium 4.7 creatinine 0.8 magnesium 2.1. Upper GI initial obstruction at the level of the sleeve gastrectomy which gradually improves and resolves during the course of the exam. Mild uniform narrowing remains. No evidence of leak or postsurgical free air. PHYSICAL EXAM: VITAL SIGNS: Reviewed GENERAL: Well-developed in no acute distress. HEENT: No sclera icterus. Extraocular movements grossly intact. Moist buccal mucosa. Head is atraumatic, normocephalic. Hears conversational speech. No nasal drainage. NECK: Supple without lymphadenopathy. CHEST: Non-labored respirations and equal bilateral excursions. CARDIOVASCULAR: Palpable 2+ radial pulses. ABDOMEN: Soft. Nondistended. Tender at incision sites MUSCULOSKELETAL: No clubbing or cyanosis. NEUROLOGIC: No focal or lateralizing signs. Cranial nerves II through XII gr ossly intact. PSYCH: Appropriate affect. Alert and oriented to person, place and time. SKIN: Well perfused. Good skin turgor. ASSESSMENT: 1. Morbid obesity due to excess calories 2. Body mass index of 67.1 3. Generalized anxiety disorder 4. Chronic obstructive pulmonary disease due to excess 5. Hypertensive heart disease 6. Depressive disorder 7. Obstructive sleep apnea 8. Motion sickness 9. Osteoarthritis lower back 10. Osteoarthritis right hip 11. Osteoarthritis bilateral knees PLAN: -Start bariatric clear liquid diet -Continue Decadron -Continue IV fluids -Continue pain management -Encourage patient to ambulate -Encourage patient to use incentive spirometer -Continue antiemetics -Repeat CBC in a.m. for leukocytosis -GI prophylaxis Protonix and DVT prophylaxis Lovenox Physician Public Health Administrator note has been reviewed by physician. Signing provider agrees with the documented findings, assessment, and plan of care. Objective - Vital Signs Vital signs: Vital Signs Temp 97.7 F 06/29/23 06:57 Pulse 88 04/16/24 06:57 Resp 17 06/29/23 06:57 BP 105/65 06/29/23 06:57 Pulse Ox 91 L 06/29/23 06:57 FiO2 Intake & Output 06/28/23 06/29/23 06/29/23 18:59 06:59 18:59 Intake Total 1200 4050 Output Total 5 Balance 1200 4045 Weight 164.7 kg 164.7 kg 164.7 kg Intake: IV 1200 250 Intake, IV Titration 3800 Amount 0.9% NaCl with KCl 20 Meq 1500 /l 1,000 ml @ 150 mls/hr IV .Q6H40M [facility] Rx#: [id number] ACETAMINOPHEN IV (For NPO 200 ) 1,000 mg In Empty Bag 1 bag @ 400 mls/hr IVPB Q6HR [facility] Rx#:[id number] Sodium Chloride 0.9% 2, 2000 000 ml @ 999 mls/hr IV . Q2H1M [facility] Rx#:[id number] ceFAZolin 3 gm In Sodium 100 Chloride 0.9% 100 ml @ 200 mls/hr IVPB Q8H [facility] Rx#:[id number] Output: Estimated Blood Loss 5 Other: Voiding Method Toilet # Voids 1 - Labs CBC & Chem 7: 06/29/23 04:48 06/29/23 04:48 Labs: Abnormal Lab Results - Last 24 Hours (Table) 06/29/23 06/29/23 Range/Units 04:48 04:48 WBC 13.08 H (4.50-10.00) X 10*3/uL Immature Gran # 0.08 H (0.00-0.04) X 10*3/uL Neutrophils # 11.30 H (1.80-7.70) X 10*3/uL Monocytes # 0.13 L (0.20-1.00) X 10*3/uL Eosinophils # 0 L (0.04-0.35) X 10*3/uL Carbon Dioxide 19.2 L (21.6-31.8) mmol/L Anion Gap 13.80 H (4.00-12.00) mmol/L Calcium 8.6 L (8.7-10.3) mg/dL
[2023-06-30 07:39] VITALS: RESP 18
[2023-06-30] MEDS ORDERED: bisacodyL 5 MG TABLET.DR PO PRN (08:00)
[2023-06-30 08:59] LABS: Basophils # (A) 0.02 X 10*3/uL (0.00-0.10); Basophils % (A) 0.1 %; Eosinophils # (A) 0 X 10*3/uL (0.04-0.35); Eosinophils % (A) 0 %; HCT 40.2 % (37.2-46.3); HGB 13.3 g/dL (12.0-15.0); Lymphocytes # (A) 1.94 X 10*3/uL (0.90-5.00); Lymphocytes % (A) 10.1 %; MCH 30.2 pg (27.0-32.0); MCHC 33.1 g/dL (32.0-37.0); MCV 91.4 FL (80.0-97.0); Mean Platelet Volume 10.8 FL (9.5-12.2); Monocytes # (A) 0.59 X 10*3/uL (0.20-1.00); Monocytes % (A) 3.1 %; NRBC Per 100 WBC 0 X 10*3/uL (0.00-0.01); Neutrophils # (A) 16.49 X 10*3/uL (1.80-7.70); Neutrophils % (A) 86.1 %; Platelet Count 454 X 10*3/uL (140-440); RDW 13.3 % (11.5-14.5); WBC 19.16 X 10*3/uL (4.50-10.00)
[2023-06-30 14:08] VITALS: BP 130/62; PULSE 88; TEMP 98.2
--- NOTE | 2023-06-30 14:38 | P.DS ---
Providers Date of admission: 06/28/23 14:13 Expected date of discharge: 06/30/23 Attending physician: Jeniffer Butts Primary care physician: CAMILLA Pierson Hospital Course: Discharge diagnosis 1. Morbid obesity due to excess calories 2. Body mass index of 67.1 3. Generalized anxiety disorder 4. Chronic obstructive pulmonary disease due to excess 5. Hypertensive heart disease 6. Depressive disorder 7. Obstructive sleep apnea 8. Motion sickness 9. Osteoarthritis lower back 10. Osteoarthritis right hip 11. Osteoarthritis bilateral knees 12. Leukocytosis likely reactive to the Decadron Hospital course Cary Pike is a 48-year-old female who comes with lifelong morbid obesity. Patient is status post robotic assisted laparoscopic sleeve gastrectomy. Patient's upper GI showed no evidence of leak or obstruction. She is tolerating liquid diet. Pain is controlled. She is having flatus. She has been up and ambulating. She denies any difficulty urinating. She is afebrile. She is stable for discharge. Physician Machine Compositor note has been reviewed by physician. Signing provider agrees with the documented findings, assessment, and plan of care. Patient Condition at Discharge: Stable Plan - Discharge Summary Discharge Rx Participant: No New Discharge Prescriptions: New bisacodyL [Dulcolax] 5 mg PO DAILY PRN #10 tab PRN Reason: Constipation Omeprazole [PriLOSEC] 40 mg PO DAILY #90 cap Simethicone 40 mg/0.6 ml Drops [Mylicon Drops] 40 mg PO PCHS PRN #30 ml PRN Reason: Gas Ondansetron Odt [Zofran Odt] 4 mg PO Q8HR PRN #9 tab PRN Reason: Nausea Acetaminophen Tab [Tylenol] 1,000 mg PO Q6HR PRN #30 tablet PRN Reason: Pain Continue Albuterol Inhaler [Ventolin Hfa Inhaler] 1 - 2 puff INHALATION Q6H PRN PRN Reason: Shortness Of Breath Montelukast [Singulair] 10 mg PO HS buPROPion HCL [buPROPion HCL SR] 150 mg PO BID Fluticasone Nasal [place] [Flonase Nasal [place]] 2 spray EA NOSTRIL DAILY PRN PRN Reason: ALLERGIES Fluticasone/Vilanterol [Breo Ellipta 100-25 Mcg Inhalr] 1 puff IH DAILY Metoprolol Succinate (ER) [Toprol XL] 25 mg PO DAILY ALPRAZolam [Xanax] 0.5 mg PO BID PRN PRN Reason: Anxiety Venlafaxine HCl [Effexor XR] 75 mg PO HS Valsartan/Hydrochlorothiazide [Valsartan-Hctz 160-12.5 mg Tab] 1 each PO D AILY Discontinued Ibuprofen [Motrin] 800 mg PO Q8H PRN PRN Reason: Pain Omeprazole [PriLOSEC] 40 mg PO DAILY #30 cap Discharge Medication List ALPRAZolam [Xanax] 0.5 mg PO BID PRN 03/03/23 [History] Albuterol Inhaler [Ventolin Hfa Inhaler] 1 - 2 puff INHALATION Q6H PRN 03/03/23 [History] Montelukast [Singulair] 10 mg PO HS 03/03/23 [History] Valsartan/Hydrochlorothiazide [Valsartan-Hctz 160-12.5 mg Tab] 1 each PO DAILY 03/03/23 [History] Venlafaxine HCl [Effexor XR] 75 mg PO HS 03/03/23 [History] Fluticasone Nasal [place] [Flonase Nasal [place]] 2 spray EA NOSTRIL DAILY PRN 04/22/23 [History] buPROPion HCL [buPROPion HCL SR] 150 mg PO BID 04/22/23 [History] Fluticasone/Vilanterol [Breo Ellipta 100-25 Mcg Inhalr] 1 puff IH DAILY 06/23/23 [History] Metoprolol Succinate (ER) [Toprol XL] 25 mg PO DAILY 06/23/23 [History] Acetaminophen Tab [Tylenol] 1,000 mg PO Q6HR PRN #30 tablet 06/30/23 [Rx] Omeprazole [PriLOSEC] 40 mg PO DAILY #90 cap 06/30/23 [Rx] Ondansetron Odt [Zofran Odt] 4 mg PO Q8HR PRN #9 tab 06/30/23 [Rx] Simethicone 40 mg/0.6 ml Drops [Mylicon Drops] 40 mg PO PCHS PRN #30 ml 06/30/23 [Rx] bisacodyL [Dulcolax] 5 mg PO DAILY PRN #10 tab 06/30/23 [Rx] Follow up Appointment(s)/Referral(s): Bariatric [place], [place] [NON-STAFF] - 07/02/23 9:00 am Patient Instructions/Handouts: Laparoscopic Sleeve Gastrectomy (DC), Nutrition after Bariatric Surgery (DC) Activity/Diet/Wound Care/Special Instructions: Liquid diet only for 2 weeks No lifting over 4 pounds in 4 weeks May Shower. No soaking in bath tubs for 2 weekds Please notify your surgeon if you develop nausea and vomiting including new onset of abdominal pain. Continue to use incentive spirometry to prevent pneumonias. Please continue to ambulate at home to prevent blood clots in legs. Follow-up at the bariatric center. May shower. Dressings to be discontinued by surgeon in the office. Drink 64 oz of fluid daily. Start protein shakes on . Notify bariatric center for temp over 101.0, increased pain, drainage from incisions. No straws or carbonated beverages. Liquid diet only. Sugar content should be less than 6 g to avoid dumping syndrome. Take MOM for constipation. CRUSH, OPEN, OR CUT TABLETS LARGER THAN A SIZE OF A TIC TAC Do not take Effexor until seen by surgeon due to increase bleeding risk Discharge Disposition: HOME SELF-CARE
== END 2023-06-30 17:00 | disposition home or self-care (01) | DRG 621 ==
LOC: 2ORMAIN 14:13 → 4SSUR 19:16
PROVIDERS: ADMIT Surgery Plastic and Reconstructive Surgery; ATTEND Surgery Plastic and Reconstructive Surgery
PROC: 0DB64Z3 Excision of Stomach, Percutaneous Endoscopic Approach, Vertical (ICD-10-PCS; principal; 2023-06-28 15:25)
PROC: 0DJ08ZZ Inspection of Upper Intestinal Tract, Via Natural or Artificial Opening Endoscopic (ICD-10-PCS; principal; 2023-06-28 15:25)
PROC: 8E0W4CZ Robotic Assisted Procedure of Trunk Region, Percutaneous Endoscopic Approach (ICD-10-PCS; principal; 2023-06-28 15:25)
DX: E66.01 Morbid (severe) obesity due to excess calories (principal); Z68.44 Body mass index [BMI] 60.0-69.9, adult; F41.1 Generalized anxiety disorder; J44.89 Other specified chronic obstructive pulmonary disease; I11.9 Hypertensive heart disease without heart failure; F32.A Depression, unspecified; G47.33 Obstructive sleep apnea (adult) (pediatric); T75.3XXA Motion sickness, initial encounter; M47.819 Spondylosis without myelopathy or radiculopathy, site unspecified; M16.11 Unilateral primary osteoarthritis, right hip; K21.9 Gastro-esophageal reflux disease without esophagitis; M17.0 Bilateral primary osteoarthritis of knee; R13.10 Dysphagia, unspecified; T38.0X5A Adverse effect of glucocorticoids and synthetic analogues, initial encounter; D72.829 Elevated white blood cell count, unspecified; Z71.3 Dietary counseling and surveillance; Z87.891 Personal history of nicotine dependence; Z79.899 Other long term (current) drug therapy; Z88.0 Allergy status to penicillin
CPT/HCPCS: 74240; 80051; 81025; 82310; 82565; 83735; 84100; 84520; 85025; 88307

== ENCOUNTER → 2023-07-02 | Outpatient (CLI) | payer BC ==
[2023-07-02 09:59] VITALS: BP 111/81; PULSE 94; RESP 14; TEMP 98.1; BMI 62.6
== END ==
LOC: BARWHC3 09:03
PROVIDERS: ATTEND Surgery Plastic and Reconstructive Surgery
DX: Z01.810 Encounter for preprocedural cardiovascular examination (principal); E66.01 Morbid (severe) obesity due to excess calories; I10 Essential (primary) hypertension; I49.3 Ventricular premature depolarization; Z98.84 Bariatric surgery status; Z88.0 Allergy status to penicillin; Z87.891 Personal history of nicotine dependence; Z90.3 Acquired absence of stomach [part of]; Z79.899 Other long term (current) drug therapy; Z68.44 Body mass index [BMI] 60.0-69.9, adult
CPT/HCPCS: 99211

== ENCOUNTER → 2023-07-07 | Outpatient (CLI) | payer BC ==
--- NOTE | 2023-07-07 15:45 | P.BASOAP ---
Subjective Progress Note Date: 07/07/23 She is having bowel movement. She lost 10 pounds in 5 days. NO MVI. She is well with her fluids. No nausea. She is drinking moderate fluids. Assessment/Plan Plan: Date: Initial Weight: Initial BMI: Current Weight: Current BMI: Type of Surgery: Total Volume in Band: Previous Volume: Volume Removed: Volume Added: Band Size:
[2023-07-07 16:15] VITALS: BP 113/70; PULSE 92; RESP 16; TEMP 97.9; BMI 60.9
== END ==
LOC: BARWHC3 13:54
PROVIDERS: ATTEND Surgery Plastic and Reconstructive Surgery
DX: E66.01 Morbid (severe) obesity due to excess calories (principal); Z71.3 Dietary counseling and surveillance; Z87.891 Personal history of nicotine dependence; Z98.84 Bariatric surgery status; Z88.0 Allergy status to penicillin; Z68.44 Body mass index [BMI] 60.0-69.9, adult
CPT/HCPCS: 97802; 99211

== ENCOUNTER → 2023-07-28 | Outpatient (CLI) | payer BC ==
[2023-07-28 14:31] VITALS: BP 110/65; PULSE 109; RESP 14; TEMP 98.3; BMI 59.3
--- NOTE | 2023-07-28 15:05 | P.BASOAP ---
Subjective Progress Note Date: 07/28/23 She lost 20 pounds in 1 month. She was pasta substitute. No GERD. She had rare nausea. She is using bariatric silverware. She is eating too fast. No constipation. She had rare abdominal pain at the [facility]. Her family is going to the gym with her. Labs for now. She is off restrictions. Objective - Vital Signs Vital signs: Vital Signs Temp 98.3 F 07/28/23 14:17 Pulse 109 H 07/28/23 14:17 Resp 14 07/28/23 14:17 BP 110/65 07/28/23 14:17 Pulse Ox FiO2 Intake & Output 07/27/23 07/28/23 07/28/23 18:59 06:59 18:59 Weight 156.943 kg Assessment/Plan Plan: Date: 07/28/23 Initial Weight: 161.025 kg Initial BMI: 60.9 Current Weight: 156.943 kg Current BMI: 59.3 Type of Surgery: Total Volume in Band: Previous Volume: Volume Removed: Volume Added: Band Size:
== END ==
LOC: BARWHC3 13:51
PROVIDERS: ATTEND Surgery Plastic and Reconstructive Surgery
DX: E66.01 Morbid (severe) obesity due to excess calories (principal); R10.12 Left upper quadrant pain; Z71.3 Dietary counseling and surveillance; Z87.891 Personal history of nicotine dependence; Z88.0 Allergy status to penicillin; Z68.43 Body mass index [BMI] 50.0-59.9, adult
CPT/HCPCS: 97803; 99211

== ENCOUNTER → 2023-07-28 | Outpatient (CLI) | payer BC ==
[2023-07-28 16:04] LABS: INR 0.9 (<1.2); Partial Thromboplastin Time 25.5 sec (22.0-30.0); Prothrombin Time 10.5 sec (10.0-12.5)
[2023-07-28 19:10] LABS: HGB 13.5 g/dL (12.0-15.0); MCH 29.4 pg (27.0-32.0); MCHC 32.9 g/dL (32.0-37.0); MCV 89.3 FL (80.0-97.0); Mean Platelet Volume 11.8 FL (9.5-12.2); NRBC Per 100 WBC 0 X 10*3/uL (0.00-0.01); Platelet Count 336 X 10*3/uL (140-440); RBC 4.59 X 10*6/uL (4.10-5.20); RDW 14.2 % (11.5-14.5); WBC 9.97 X 10*3/uL (4.50-10.00)
[2023-07-28 21:44] LABS: Prealbumin 18.7 mg/dL (18.0-42.0)
[2023-07-28 23:35] LABS: Chol/HDL Ratio 3.74 Ratio; Iron 26 UG/DL (50-170)
[2023-07-28 23:36] LABS: % Iron Saturation 8.41 (12.00-45.00); ALT 56 U/L (8-44); AST 31 U/L (13-35); Albumin 4.2 g/dL (3.8-4.9); Albumin/Globulin Ratio 1.75 Ratio (1.60-3.17); Alkaline Phosphatase 85 U/L (41-126); Blood Urea Nitrogen 15.3 mg/dL (9.0-27.0); Calcium 9.5 mg/dL (8.7-10.3); Carbon Dioxide 20.8 mmol/L (21.6-31.8); Chloride 102 mmol/L (96-109); Ferritin 79.1 ng/mL (10.0-291.0); Globulin 2.4 g/dL (1.6-3.3); Glucose 100 mg/dL (70-110); LDL Cholesterol,Calculated 100.2 mg/dL (0.0-131.0); Phosphorus 2.5 mg/dL (2.4-5.1); Potassium 4.4 mmol/L (3.5-5.5); Sodium 138 mmol/L (135-145); Total Bilirubin 0.4 mg/dL (0.3-1.2); Total Iron Binding Capacity 309 UG/DL (228-460); Total Protein 6.6 g/dL (6.2-8.2)
[2023-07-29 12:55] LABS: Zinc, Serum 75 ug/dL (60-130)
[2023-07-30 05:53] LABS: Vitamin A 42 ug/dL (38-106)
== END | disposition home or self-care (01) ==
LOC: LABWHC1 15:16
PROVIDERS: ATTEND Surgery Plastic and Reconstructive Surgery
DX: E66.01 Morbid (severe) obesity due to excess calories (principal); E89.1 Postprocedural hypoinsulinemia; D50.8 Other iron deficiency anemias; K91.2 Postsurgical malabsorption, not elsewhere classified; E44.0 Moderate protein-calorie malnutrition; E45 Retarded development following protein-calorie malnutrition; K74.1 Hepatic sclerosis; N19 Unspecified kidney failure; T56.894A Toxic effect of other metals, undetermined, initial encounter; K50.90 Crohn's disease, unspecified, without complications
CPT/HCPCS: 36415; 80053; 80061; 82306; 82525; 82607; 82728; 82746; 83036; 83540; 83550; 83735; 83970; 84100; 84134; 84255; 84425; 84443; 84590; 84630; 85027; 85610; 85730

== ENCOUNTER → 2023-10-05 | Outpatient (CLI) | payer BC ==
[2023-10-05 15:21] LABS: INR 0.9 (<1.2); Partial Thromboplastin Time 25.4 sec (22.0-30.0); Prothrombin Time 10.3 sec (10.0-12.5)
[2023-10-05 18:30] LABS: HCT 40.3 % (37.2-46.3); HGB 13.4 g/dL (12.0-15.0); MCH 29.8 pg (27.0-32.0); MCHC 33.3 g/dL (32.0-37.0); MCV 89.8 FL (80.0-97.0); Mean Platelet Volume 11.3 FL (9.5-12.2); NRBC Per 100 WBC 0 X 10*3/uL (0.00-0.01); Platelet Count 295 X 10*3/uL (140-440); RBC 4.49 X 10*6/uL (4.10-5.20); WBC 8.39 X 10*3/uL (4.50-10.00)
[2023-10-05 21:26] LABS: Prealbumin 21.5 mg/dL (18.0-42.0)
[2023-10-05 22:17] LABS: % Iron Saturation 22.12 (12.00-45.00); ALT 25 U/L (8-44); AST 20 U/L (13-35); Albumin 4.2 g/dL (3.8-4.9); Albumin/Globulin Ratio 1.83 Ratio (1.60-3.17); Alkaline Phosphatase 75 U/L (41-126); Blood Urea Nitrogen 18.9 mg/dL (9.0-27.0); Calcium 9.5 mg/dL (8.7-10.3); Carbon Dioxide 23.6 mmol/L (21.6-31.8); Chloride 104 mmol/L (96-109); Chol/HDL Ratio 3.67 Ratio; Ferritin 58.8 ng/mL (10.0-291.0); Globulin 2.3 g/dL (1.6-3.3); Glucose 100 mg/dL (70-110); Iron 69 UG/DL (50-170); LDL Cholesterol,Calculated 106.3 mg/dL (0.0-131.0); Magnesium 2.1 mg/dL (1.5-2.4); Phosphorus 2.6 mg/dL (2.4-5.1); Potassium 4.4 mmol/L (3.5-5.5); Sodium 139 mmol/L (135-145); Total Bilirubin 0.2 mg/dL (0.3-1.2); Total Iron Binding Capacity 312 UG/DL (228-460); Total Protein 6.5 g/dL (6.2-8.2)
[2023-10-06 12:24] LABS: Zinc, Serum 87 ug/dL (60-130)
[2023-10-07 06:28] LABS: Vitamin A 48 ug/dL (38-106)
== END | disposition home or self-care (01) ==
LOC: LABWHC1 14:09
PROVIDERS: ATTEND Surgery Plastic and Reconstructive Surgery
DX: E66.01 Morbid (severe) obesity due to excess calories (principal); D50.8 Other iron deficiency anemias; K91.2 Postsurgical malabsorption, not elsewhere classified; E44.0 Moderate protein-calorie malnutrition; E44.1 Mild protein-calorie malnutrition; E45 Retarded development following protein-calorie malnutrition; E55.9 Vitamin D deficiency, unspecified; K74.1 Hepatic sclerosis; N19 Unspecified kidney failure; T56.894A Toxic effect of other metals, undetermined, initial encounter; K50.90 Crohn's disease, unspecified, without complications
CPT/HCPCS: 36415; 80053; 80061; 82306; 82525; 82607; 82728; 82746; 83036; 83540; 83550; 83735; 83970; 84100; 84134; 84255; 84425; 84443; 84590; 84630; 85027; 85610; 85730

== ENCOUNTER → 2023-12-29 | Outpatient (CLI) | payer BC ==
[2023-12-29 15:27] VITALS: BP 125/85; PULSE 87; RESP 16; TEMP 97.4; BMI 52.2
--- NOTE | 2023-12-29 15:55 | P.BASOAP ---
Subjective Progress Note Date: 12/29/23 She lost 100 pounds. Needs food journal. Get labs. Increase protein to 100 gram daily. Encouraged. Objective - Vital Signs Vital signs: Vital Signs Temp 97.4 F L 12/29/23 15:20 Pulse 87 12/29/23 15:20 Resp 16 12/29/23 15:20 BP 125/85 12/29/23 15:20 Pulse Ox FiO2 Intake & Output 12/28/23 12/29/23 12/29/23 18:59 06:59 18:59 Weight 137.892 kg Assessment/Plan Plan: Date: 12/29/23 Initial Weight: 161.025 kg Initial BMI: 60.9 Current Weight: 137.892 kg Current BMI: 52.2 Type of Surgery: Total Volume in Band: Previous Volume: Volume Removed: Volume Added: Band Size:
== END ==
LOC: BARWHC3 14:08
PROVIDERS: ATTEND Surgery Plastic and Reconstructive Surgery
DX: E66.01 Morbid (severe) obesity due to excess calories (principal); Z88.0 Allergy status to penicillin; Z68.43 Body mass index [BMI] 50.0-59.9, adult
CPT/HCPCS: 99211

== ENCOUNTER 2023-12-30 14:14 | Emergency (ER) | payer BC ==
--- NOTE | 2023-12-30 14:24 | ED ---
Syncope HPI - General Stated Complaint: Syncope Time Seen by Provider: 12/30/23 14:20 Source: RN notes reviewed, old records reviewed Mode of arrival: ambulatory Limitations: no limitations - History of Present Illness Initial Comments: This is a 48-year-old female to the ER for evaluation patient [facility] for evaluation of syncopal event. Patient had a vasovagal vagal type syncope event while getting her blood drawn today. Patient was having blood drawn for bariatric surgery, she feels well here in the ER no chest pain shortness of breath abdominal pain or headache. Has been feeling well lately without complaint no nausea vomiting diarrhea or recent medication changes MD Complaint: loss of consciousness -: days(s) Prodromal Symptoms: none -: second(s) Witnessed: yes - by bystander Injuries Sustained Associated with Event: None Current Symptoms: back to baseline History: previous syncopal episode (0) Context: at rest, other (getting blood draw) Treatments Prior to Arrival: none - Related Data Home Medications Medication Instructions Recorded Confirmed ALPRAZolam [Xanax] 0.5 mg PO BID PRN 03/03/23 12/29/23 Albuterol Inhaler [Ventolin Hfa 1 - 2 puff INHALATION Q6H PRN 03/03/23 12/29/23 Inhaler] Montelukast [Singulair] 10 mg PO HS 03/03/23 12/29/23 Venlafaxine HCl [Effexor XR] 75 mg PO HS 03/03/23 12/29/23 Fluticasone Nasal Sparks [Flonase 2 spray EA NOSTRIL DAILY PRN 04/22/23 12/29/23 Nasal Sparks] buPROPion HCL [buPROPion HCL SR] 150 mg PO DAILY 04/22/23 12/29/23 Fluticasone/Vilanterol [Breo 1 puff IH DAILY 06/23/23 12/29/23 Ellipta 100-25 Mcg Inhalr] Metoprolol Succinate (ER) [Toprol 25 mg PO DAILY 06/23/23 12/29/23 XL] Cetirizine HCl [Zyrtec] 10 mg PO DAILY 09/29/23 12/29/23 Previous Rx's Medication Instructions Recorded Acetaminophen Tab [Tylenol] 1,000 mg PO Q6HR PRN #30 tablet 06/30/23 Omeprazole [PriLOSEC] 40 mg PO DAILY #90 cap 06/30/23 Allergies Allergy/AdvReac Type Severity Reaction Status Date / Time Penicillins Allergy Unknown Verified 12/29/23 15:20 Childhood Review of Systems ROS Statement: Those systems with pertinent positive or pertinent negative responses have been documented in the HPI. ROS Other: All systems not noted in ROS Statement are negative. Past Medical History Past Medical History: Asthma, COPD, Hypertension, Sleep Apnea/CPAP/BIPAP Additional Past Medical History / Comment(s): knees pain, does not wear cpap History of Any Multi-Drug Resistant Organisms: None Reported Past Surgical History: Bladder Surgery, Section Additional Past Surgical History / Comment(s): colonoscopy. egd. Sleeve gastr ectomy 06-28-23 Past Anesthesia/Blood Transfusion Reactions: No Reported Reaction, Motion Sickness Past Psychological History: Anxiety, Depression Smoking Status: Former smoker Past Alcohol Use History: Occasional Additional Past Alcohol Use History / Comment(s): QUIT SMOKING 2011 Past Drug Use History: None Reported - Past Family History Mother Family Medical History: Cancer, Deep Vein Thrombosis (DVT) Father Family Medical History: Cancer Additional Family Medical History / Comment(s): DDD, Leukemia Course Vital Signs 12/30/23 12/30/23 14:20 15:26 Temperature 98 F Pulse Rate 70 73 Respiratory 18 18 Rate Blood Pressure 110/58 125/55 O2 Sat by Pulse 100 98 Oximetry - Reevaluation(s) Reevaluation #1: Medical records reviewed Reevaluation #2: No recurrent syncope here in the ER Reevaluation #3: Patient informed of results questions answered Reevaluation #4: Was pt. sent in by a medical professional or institution (, PA, RIBB[employer] CUTTER, urgent ca re, hospital, or alf...) When possible be specific @ -no Did you speak to anyone other than the patient for history (EMS, parent, family, police, friend...)? What history was obtained from this source @ -no Did you review nursing and triage notes (agree or disagree)? Why? @ -agree Are old charts reviewed (outside hosp., previous admission, EMS record, old EKG, old radiological studies, urgent care reports/EKG's, alf records)? Report findings @ -yes Differential Diagnosis (chest pain, altered mental status, abdominal pain women, abdominal pain men, vaginal bleeding, weakness, fever, dyspnea, syncope, headache, dizziness, GI bleed, back pain, seizure, CVA, palpatations, mental health, musculoskeletal)? @ -prior EKG interpreted by me (3pts min.). @ -yes X-rays interpreted by me (1pt min.). @ -no CT interpreted by me (1pt min.). @ -no U/S interpreted by me (1pt. min.). @ -no What testing was considered but not performed or refused? (CT, X-rays, U/S, labs)? Why? @ -none What meds were considered but not given or refused? Why? @ -none Did you discuss the management of the patient with other professionals (professionals i.e. , PA, [employer], lab, RT, psych nurse, vp digital marketing social media and crm, furnace combustion tester, teacher, chief privacy officer, family caseworker)? Give summary @ -no Was smoking cessation discussed for >3mins.? @ -no Was critical care preformed (if so, how long)? @ -no Were there social determinants of health that impacted care today? How? (Homelessness, low income, unemployed, alcoholism, drug addiction, transportation, low edu. Level, literacy, decrease access to med. care, shelter, rehab)? @ -none Was there de-escalation of care discussed even if they declined (Discuss DNR or withdrawal of care, Hospice)? DNR status @ -no What co-morbidities impacted this encounter? (DM, HTN, Smoking, COPD, CAD, Cancer, CVA, ARF, Chemo, Hep., AIDS, mental health diagnosis, sleep apnea, morbid obesity)? @ -none Was patient admitted / discharged? Hospital course, mention meds given and route, prescriptions, significant lab abnormalities, going to OR and other pertinent info. @ - 48 female with vasovagal event during blood draw. No acute signs and symptoms now no recurrent syncope no chest pain shortness of breath or abdominal pain. Patient is okay for discharge Discharge Undiagnosed new problem with uncertain prognosis? @ -no Drug Therapy requiring intensive monitoring for toxicity (Heparin, Nitro, Insulin, Cardizem)? @ -no Were any procedures done? @ -no Diagnosis/symptom? @ -Syncopal event, vasovagal Acute, or Chronic, or Acute on Chronic? @ -Acute Uncomplicated (without systemic symptoms) or Complicated (systemic symptoms)? @ -Complicated Side effects of treatment? @ -no Exacerbation, Progression, or Severe Exacerbation? @ -exacerbation Poses a threat to life or bodily function? How? (Chest pain, USA, OR, pneumonia, PE, COPD, DKA, ARF, appy, cholecystitis, CVA, Diverticulitis, Homicidal, Suicidal, threat to staff... and all critical care pts) @ -yes syncope Reevaluation #5: Differential Syncope: Valvular disease, hypertrophic cardiomyopathy, pulmonary embolism, tamponade, tachycardia, bradycardia, OR, hypovolemia, hemorrhage, dissection, anemia, intracranial hemorrhage, seizure, hypoglycemia, carbon monoxide poisoning, this is not meant to be an all-inclusive list. EKG Findings - EKG Comments: EKG Findings:: EKG is sinus 63 MD 168 QRS 77 QTc 406 - EKG Results: EKG: interpreted by [facility]IM[facility] Medical Decision Making - Medical Decision Making 48 female with vasovagal event during blood draw. No acute signs and symptoms now no recurrent syncope no chest pain shortness of breath or abdominal pain. Patient is okay for discharge - EKG Data -: EKG Interpreted by Me Disposition Clinical Impression: Syncope, Vasovagal syncope Disposition: HOME SELF-CARE Condition: Fair Instructions (If sedation given, give patient instructions): Syncope (ED) Is patient prescribed a controlled substance at d/c from ED?: No Referrals: Ran Cheney MD [Primary Care Provider] - 1-2 days Time of Disposition: 14:20
[2023-12-30 14:27] VITALS: RESP 18; TEMP 98
[2023-12-30 15:29] VITALS: BP 125/55; PULSE 73
== END 2023-12-30 15:31 | disposition home or self-care (01) ==
LOC: EC 14:14
CPT/HCPCS: 93005; 99284

== ENCOUNTER → 2023-12-30 | Outpatient (CLI) | payer BC ==
[2023-12-30 15:58] LABS: INR 0.9 (<1.2); Partial Thromboplastin Time 23.9 sec (22.0-30.0); Prothrombin Time 10.4 sec (10.0-12.5)
[2023-12-30 18:25] LABS: HCT 40.3 % (37.2-46.3); HGB 13.4 g/dL (12.0-15.0); MCH 30.2 pg (27.0-32.0); MCHC 33.3 g/dL (32.0-37.0); Mean Platelet Volume 10.9 FL (9.5-12.2); NRBC Per 100 WBC 0 X 10*3/uL (0.00-0.01); Platelet Count 297 X 10*3/uL (140-440); RBC 4.43 X 10*6/uL (4.10-5.20); RDW 13.5 % (11.5-14.5); WBC 10.71 X 10*3/uL (4.50-10.00)
[2023-12-30 20:30] LABS: Prealbumin 23.4 mg/dL (18.0-42.0)
[2023-12-30 20:37] LABS: % Iron Saturation 19.05 (12.00-45.00); BUN/Creat Ratio 17.56 Ratio (12.00-20.00); Blood Urea Nitrogen 15.8 mg/dL (9.0-27.0); Carbon Dioxide 21.9 mmol/L (21.6-31.8); Chloride 103 mmol/L (96-109); Chol/HDL Ratio 3.37 Ratio; Glucose 91 mg/dL (70-110); Iron 64 UG/DL (50-170); LDL Cholesterol,Calculated 120.7 mg/dL (0.0-131.0); Magnesium 2.1 mg/dL (1.5-2.4); Phosphorus 3.4 mg/dL (2.4-5.1); Sodium 138 mmol/L (135-145); Total Iron Binding Capacity 336 UG/DL (228-460)
[2023-12-30 20:38] LABS: ALT 20 U/L (8-44); AST 23 U/L (13-35); Albumin 4.3 g/dL (3.8-4.9); Albumin/Globulin Ratio 1.59 Ratio (1.60-3.17); Alkaline Phosphatase 85 U/L (41-126); Calcium 9.5 mg/dL (8.7-10.3); Ferritin 70.4 ng/mL (10.0-291.0); Globulin 2.7 g/dL (1.6-3.3); Total Bilirubin 0.4 mg/dL (0.3-1.2)
[2023-12-31 12:49] LABS: Zinc, Serum 73 ug/dL (60-130)
[2024-01-03 08:35] LABS: Vit B1(Thiamine) 52 ug/L (38-122)
== END | disposition home or self-care (01) ==
LOC: LABWHC1 13:03
PROVIDERS: ATTEND Surgery Plastic and Reconstructive Surgery
DX: E66.01 Morbid (severe) obesity due to excess calories (principal)
CPT/HCPCS: 36415; 80053; 80061; 82306; 82525; 82607; 82728; 82746; 83036; 83540; 83550; 83735; 83970; 84100; 84134; 84255; 84425; 84443; 84630; 85027; 85610; 85730

== ENCOUNTER → 2024-07-05 | Outpatient (CLI) | payer BC ==
[2024-07-05 15:43] LABS: INR 0.9 (<1.2); Partial Thromboplastin Time 24.4 sec (22.0-30.0); Prothrombin Time 10.4 sec (10.0-12.5)
[2024-07-05 18:46] LABS: % Iron Saturation 18.77 (12.00-45.00); ALT 18 U/L (8-44); AST 19 U/L (13-35); Albumin 4.2 g/dL (3.8-4.9); Albumin/Globulin Ratio 1.62 Ratio (1.60-3.17); Alkaline Phosphatase 82 U/L (41-126); BUN/Creat Ratio 22.67 Ratio (12.00-20.00); Blood Urea Nitrogen 20.4 mg/dL (9.0-27.0); Calcium 9.5 mg/dL (8.7-10.3); Carbon Dioxide 24.2 mmol/L (21.6-31.8); Chloride 102 mmol/L (96-109); Chol/HDL Ratio 3.19 Ratio; Ferritin 46.5 ng/mL (10.0-291.0); Globulin 2.6 g/dL (1.6-3.3); Glucose 96 mg/dL (70-110); Iron 67 UG/DL (50-170); LDL Cholesterol,Calculated 111.2 mg/dL (0.0-131.0); Phosphorus 3.3 mg/dL (2.4-5.1); Potassium 4.6 mmol/L (3.5-5.5); Sodium 138 mmol/L (135-145); Total Bilirubin 0.4 mg/dL (0.3-1.2); Total Iron Binding Capacity 357 UG/DL (228-460); Total Protein 6.8 g/dL (6.2-8.2)
[2024-07-05 22:55] LABS: Prealbumin 22.9 mg/dL (18.0-42.0)
[2024-07-06 01:13] LABS: HCT 39.3 % (37.2-46.3); HGB 12.9 g/dL (12.0-15.0); MCHC 32.8 g/dL (32.0-37.0); MCV 91.4 FL (80.0-97.0); NRBC Per 100 WBC 0 X 10*3/uL (0.00-0.01); Platelet Count 380 X 10*3/uL (140-440); RDW 13.3 % (11.5-14.5); WBC 10.96 X 10*3/uL (4.50-10.00)
[2024-07-06 09:00] LABS: Zinc, Serum 92 ug/dL (60-130)
[2024-07-07 07:18] LABS: Vitamin A 59 ug/dL (38-106)
== END | disposition home or self-care (01) ==
LOC: LABWHC1 14:57
PROVIDERS: ATTEND Surgery Plastic and Reconstructive Surgery
DX: E55.9 Vitamin D deficiency, unspecified (principal); E44.0 Moderate protein-calorie malnutrition; E45 Retarded development following protein-calorie malnutrition; E89.1 Postprocedural hypoinsulinemia; D50.9 Iron deficiency anemia, unspecified; D50.8 Other iron deficiency anemias; K74.1 Hepatic sclerosis; N19 Unspecified kidney failure; K50.90 Crohn's disease, unspecified, without complications; T56.894A Toxic effect of other metals, undetermined, initial encounter
CPT/HCPCS: 36415; 80053; 80061; 82306; 82525; 82607; 82728; 82746; 83540; 83550; 83735; 83970; 84100; 84134; 84255; 84425; 84443; 84590; 84630; 85027; 85610; 85730